=== PATIENT | male | born 1955 | race Caucasian/White ===

== ENCOUNTER → 2016-12-14 13:15 | Day surgery (SDC) | payer MEDICARE ==
[~2016-12-14 13:15] MED LIST: Buffered Lidocaine 1% SYR 3ML* 3 ML/SYR SYRINGE INTRADERM ONE; Bupivacaine 0.25% EPI 200,000* 30 ML SDV ONE; Dexamethasone IV* 4 MG/ML 1 ML (4 MG) ONE; Glycopyrrolate IV* 0.2 MG/ML 1 ML VIAL ONE; Lidocaine 2% PF * 5 ML VIAL ONE; Midazolam* 1 MG/ML 2 ML VIAL (2 MG) ONE; Neostigmine Methylsulfate* 2 MG/2 ML SYRINGE ONE; Ondansetron INJ* 2 MG/ML VIAL IV PRN; Propofol* 10 MG/ML 20 ML BTL IV PUSH ONE; Rocuronium* 10 MG/ML VIAL ONE; Sodium Citrate/Citric Acid* 15 ML UDC ONE; Sodium Citrate/Citric Acid* 15 ML UDC PO ONE; ceFAZolin 2 GM PREMIX (*) 2 GM/50 ML BAG IVPB ONE; fentaNYL* 50 MCG/ML 2 ML VIAL (100 MCG VIAL) ONE; oxyCODONE/Acetamin 5/325 MG* TAB ONE
--- NOTE | 2016-12-14 17:25 | SURGPN ---
Brief Operative Note - Surgery Procedures: Pre-OP Diagnoses: Bilateral inguinal hernia Post-op Diagnosis: same Procedure: Laparoscopic bilateral hernia repair with mesh Surgeon: Joanie Asst: Carmencita Anethesia: WILLI Mccall EBL: minimal IVF: 1700cc LR Specimen: none Drains: none
[2016-12-14] MEDS: fentaNYL* 50 MCG/ML 2 ML VIAL (100 MCG VIAL) IV PRN ×2 (17:49→18:12)
[2016-12-14 18:58] VITALS: BP 136/83
--- NOTE | 2016-12-28 01:00 | OP ---
DATE OF OPERATION: 12/14/16 - [facility] DATE OF : 55 SURGEON: Dr. Nair. PAINT PREPARER: REBA Monsivais ANESTHESIOLOGIST: Dr. Mccall. ANESTHESIA: General anesthesia. PRE-OP DIAGNOSIS: Bilateral inguinal hernia. POST-OP DIAGNOSIS: Bilateral inguinal hernia. OPERATIVE PROCEDURE: Laparoscopic bilateral inguinal hernia repairs with mesh. BLOOD LOSS: Minimal. FLUIDS: 1700 cc of crystalloid fluid given. SPECIMENS: None. COUNT: Lap pad count and instrument count correct at the end of the procedure. DESCRIPTION OF PROCEDURE: The patient was identified in the preoperative area, marked, and brought to the operating room, and placed on the operating table in a supine position. Preoperative antibiotics were given. Sequential devices were placed on bilateral lower extremities. General anesthesia was induced. Kate catheter was inserted. The patient's abdominal hair was clipped, and the patient was prepped and dapped in a standard surgical fashion. A time-out was performed. An infraumbilical incision was made. This was deepened down to the anterior fascia on the right, which was incised and the right rectus pillar was retracted lateral and entry into the preperitoneal space was made. Blunt finger dissection was then carried out, freeing up the space and then placing the 12 mm trocar in. The space was then allowed to insufflate to a pressure of 12 mmHg. The patient tolerated the insufflation well. There was no obvious pneumoperitoneum. Camera was then inserted with scant bleeding. Additional blunt dissection was then carried out with the camera right down to the pubic symphysis. Two additional 5-mm ports were then placed in the lower midline. Attention was turned towards the pubic symphysis as well as the Geoffrey's ligament on the right and then Geoffrey's ligament on the left. The direct hernia space was then identified. Blunt dissection was carried out to free up a small direct hernia. The epigastric muscles were maintained anteriorly and the space of Bogros was then opened up laterally in a very wide fashion as is the typical fashion. Then, spermatic structures were identified. Small indirect hernia sac was then reduced and removed from these structures. Structures were skeletonized. No lipoma was identified. Next, attention was turned towards the right side, similar dissection was carried out. An indirect hernia sac was identified. This was reduced off of the spermatic structures, maintaining the epigastric vessels anteriorly. Again , the Bogros space had been opened up laterally myopectineal orifice. Hemostasis was excellent. The first mesh to be placed was over the left myopectineal orifice, this was a Bard 3D Max large size mesh. It was placed over the full myopectineal orifice, tacked just above the pubic symphysis, tacked at the Geoffrey's ligament anteriorly at the rectus muscle and also laterally. A similar mesh was then placed on the opposite side. They did cross the midline and were tacked appropriately. The dissection space was then allowed to collapse, holding the meshes in place, and the trocars were removed under direct vision. Anterior fascia at the umbilical port site was reapproximated with 0 Polysorb suture in a [id number] fashion. All three skin incisions were reapproximated with 4-0 Monocryl subcuticular sutures, followed by Steri-Strips and sterile dressing. The patient tolerated the procedure well, was woken up in the OR, and transferred to the PACU in stable condition. CC: [facility]; Nasra Biggs [place]* [id number]/[facility] #: [id number] NUZHAT
== END | disposition home or self-care (01) ==
LOC: OR 13:15
PROVIDERS: ATTEND Surgery
DX: K40.20 Bilateral inguinal hernia, without obstruction or gangrene, not specified as recurrent (principal); Z87.891 Personal history of nicotine dependence
CPT/HCPCS: A9270-GY; C1781; J0690; J1100; J2250; J2704; J3010

== ENCOUNTER 2017-04-22 18:37 | Emergency (ER) | payer MEDICARE ==
[2017-04-22] MEDS ORDERED: cefTRIAXone(*) 1 GM in NS 0.9% 50 ML* 50 ML IVPB ONE (21:53)
[2017-04-22] MEDS ORDERED: NS 0.9% 1000 ML* 1,000 ML IV ONE (21:53)
[2017-04-22 22:23] LABS: Hematocrit 42 % (42-52); Hemoglobin 14.4 g/dl (14.0-18.0); Mean Corpuscular HGB Conc 34 g/dl (31-36); Mean Corpuscular Hemoglobin 32 pg (27-31); Mean Corpuscular Volume 95 fL (80-94); Mean Platelet Volume 8 um3 (7.4-10.4); Red Blood Count 4.43 10^6/ul (4.0-5.4); Red Cell Distribution Width 13 % (10.5-15); White Blood Count 7.8 10^3/ul (3.5-10.8)
[2017-04-22 22:37] LABS: Albumin 4.2 g/dL (3.2-5.2); C Reactive Protein 21.48 mg/L (< 5.00); Calcium 9.2 mg/dL (8.6-10.3); EGFR African American 107.6 (>60); EGFR Non-African American 83.6 (>60); Potassium 3.9 mmol/L (3.5-5.0); Total Bilirubin 0.6 mg/dL (0.2-1.0); Total Protein 7.2 g/dL (6.4-8.9)
--- NOTE | 2017-04-23 01:15 | ED ---
Rufina Sands Rebecca, scribed for Manohar Ayala MD on 04/22/17 at 2153 . Skin Complaint - HPI Summary HPI Summary: Pt is a 61 y./o M who presents to ED c/o worsening rash on the L shoulder blade with fever. Rash began approximately 10 days ago, beginning as a small, slightly swollen region similar to an enlarged mosquito bite. Since onset the rash has been increased in size. He was prescribed Bactrim 7 days ago and today he had his medication switched to Doxycycline with one dose taken. Sx alleviated by Mupirocin topical ointment, aggravated by nothing. Today, he began experiencing a fever. Called his [facility] consultant physician who advised evaluation by an ED. - History of Current Complaint Chief Complaint: EDGeneral Time Seen by Provider: 04/22/17 21:42 Stated Complaint: ABSCESS ON BACK Hx Obtained From: Patient Onset/Duration: Started Days Ago - 10 days ago, Still Present Timing: Constant Current Severity: Mild Pain Intensity: 3 Pain Scale Used: 0-10 Numeric Skin Location: Other: - L shoulder blade Character: Swelling Aggravating Symptom(s): Nothing Alleviating Symptom(s): OTC Creams/Salves - Mupirocin Associated Signs & Symptoms: Fever - Allergy/Home Medications Allergies/Adverse Reactions: Allergies Allergy/AdvReac Type Severity Reaction Status Date / Time Oxycodone AdvReac Intermediate Vomiting Verified 12/14/16 14:42 PMH/Surg Hx/FS Hx/Imm Hx Musculoskeletal History: Reports: Hx Arthritis Sensory History: Reports: Hx Contacts or Glasses - reading Denies: Hx Hearing Aid Opthamlomology History: Reports: Hx Contacts or Glasses - reading - Surgical History Surgery Procedure, Year, and Place: 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 right inguinal hernia 1963 Hx Anesthesia Reactions: No - Immunization History Date of Tetanus Vaccine: unk Date of Influenza Vaccine: unk Infectious Disease History: No Infectious Disease History: Denies: Traveled Outside the [place] in Last 30 Days - Family History Known Family History: Negative: Hypertension, Diabetes - Social History Alcohol Use: Daily Substance Use Type: Reports: None Smoking Status (MU): Former Smoker Review of Systems Positive: Fever Positive: Rash - Swollen region on the L shoulder blade All Other Systems Reviewed And Are Negative: Yes Physical Exam - Summary Physical Exam Summary: General: well-appearing, no pain distress Skin: warm, dry; on the back on the L shoulder blade he has an area of a swollen spot 10 cm x 6 cm and the central portion is weeping Head: normal Eyes: EOMI, CONNIE ENT: normal Neck: supple, nontender Respiratory: CTA, breath sounds present Cardiovascular: RRR Abdomen: soft, nontender Bowel: present Musculoskeletal: normal, strength/ROM intact Neurological: normal, sensory/motor intact, A&O x3 Psychological: affect/mood appropriate Triage Information Reviewed: Yes Vital Signs On Initial Exam: Initial Vitals Temp Pulse Resp BP Pulse Ox 99.6 F 80 16 168/94 97 04/22/17 18:38 04/22/17 18:38 04/22/17 18:38 04/22/17 18:38 04/22/17 18:38 Vital Signs Reviewed: Yes - [place] Coma Scale Coma Scale Total: 15 Diagnostics - Vital Signs Vital Signs Temp Pulse Resp BP Pulse Ox 04/22/17 20:30 99.9 F 73 153/83 100 04/22/17 18:46 99.6 F 80 16 168/94 98 04/22/17 18:38 99.6 F 80 16 168/94 97 - Laboratory Lab Results: Lab Results 04/22/17 04/22/17 04/22/17 Range/Units 22:10 22:10 22:10 WBC 7.8 (3.5-10.8) 10^3/ul RBC 4.43 (4.0-5.4) 10^6/ul Hgb 14.4 (14.0-18.0) g/dl Hct 42 (42-52) % MCV 95 H (80-94) fL MCH 32 H (27-31) pg MCHC 34 (31-36) g/dl RDW 13 (10.5-15) % Plt Count 216 (150-450) 10^3/ul MPV 8 (7.4-10.4) um3 Neut % (Auto) 72.6 (38-83) % Lymph % (Auto) 15.0 L (25-47) % [place] % (Auto) 9.7 H (1-9) % Eos % (Auto) 2.1 (0-6) % Baso % (Auto) 0.6 (0-2) % Absolute Neuts (auto) 5.7 (1.5-7.7) 10^3/ul Absolute Lymphs (auto) 1.2 (1.0-4.8) 10^3/ul Absolute Monos (auto) 0.8 (0-0.8) 10^3/ul Absolute Eos (auto) 0.2 (0-0.6) 10^3/ul Absolute Basos (auto) 0 (0-0.2) 10^3/ul Absolute Nucleated RBC 0 10^3/ul Nucleated RBC % 0 Sodium 131 L (133-145) mmol/L Potassium 3.9 (3.5-5.0) mmol/L Chloride 98 L (101-111) mmol/L Carbon Dioxide 26 (22-32) mmol/L Anion Gap 7 (2-11) mmol/L BUN 12 (6-24) mg/dL Creatinine 0.92 (0.67-1.17) mg/dL Est GFR ( Amer) 107.6 (>60) Est GFR (Non-Af Amer) 83.6 (>60) BUN/Creatinine Ratio 13.0 (8-20) Glucose 112 H (70-100) mg/dL Lactic Acid 0.7 (0.5-2.0) mmol/L Calcium 9.2 (8.6-10.3) mg/dL Total Bilirubin 0.60 (0.2-1.0) mg/dL AST 26 (13-39) U/L ALT 21 (7-52) U/L Alkaline Phosphatase 74 (34-104) U/L C-Reactive Protein 21.48 H (< 5.00) mg/L Total Protein 7.2 (6.4-8.9) g/dL Albumin 4.2 (3.2-5.2) g/dL Globulin 3.0 (2-4) g/dL Albumin/Globulin Ratio 1.4 (1-3) Result Diagrams: 04/22/17 22:10 04/22/17 22:10 Lab Statement: Any lab studies that have been ordered have been reviewed, and results considered in the medical decision making process. Course/Dx - Course Course Of Treatment: NO CRITICAL CARE TIME. NO OBVIOUS ABSCESS TO DRAIN. PATIENT IMPROVING ON DOXY/MUPIROCIN. DISCHARGE HOME STABLE. - Diagnoses Provider Diagnoses: Cellulitis, Tick bite Discharge - Discharge Plan Condition: Stable Disposition: HOME Patient Education Materials: Cellulitis (ED), Tick Bite (ED) Referrals: Mathieu Bundy MD [Primary Care Provider] - Additional Instructions: FOLLOW UP WITH YOUR DOCTOR. RETURN TO THE EMERGENCY DEPARTMENT FOR ANY WORSENING OF YOUR CONDITION OR QUESTIONS OR CONCERNS. The documentation as recorded by the Rufina newman Rebecca accurately reflects the service I personally performed and the decisions made by me, Manohar Ayala MD.
[2017-04-23 01:40] VITALS: BP 158/93
[2017-04-26 12:29] LABS: Lyme Disease IgG Ab WB Positive (Negative)
== END 2017-04-23 01:31 | disposition home or self-care (01) ==
LOC: ED 18:37
DX: S40.262A Insect bite (nonvenomous) of left shoulder, initial encounter (principal); L03.114 Cellulitis of left upper limb; W57.XXXA Bitten or stung by nonvenomous insect and other nonvenomous arthropods, initial encounter; Y92.9 Unspecified place or not applicable
CPT/HCPCS: 36415; 80053; 83605; 85025; 86140; 86617; 86618; 87040; 96360; 96374; 99282; J0696